=== PATIENT | male | born 1955 | race Caucasian/White ===

== ENCOUNTER 2016-05-27 13:16 | Emergency (ER) | payer MEDICARE ==
[2016-05-27] MEDS ORDERED: DUONEB INH ONE ×2 (15:04)
[2016-05-27] MEDS ORDERED: KETOROLAC 30 MG/ML VIAL ONE (15:12)
[2016-05-27] MEDS ORDERED: CEFTRIAXONE 1 GM VIAL ONE (15:12)
[2016-05-27] MEDS ORDERED: SODIUM CHLORIDE 0.9% 1,000 ML ONE (15:12)
[2016-05-27] MEDS ORDERED: SODIUM CHLORIDE 0.9% 100 ML IV ONE (15:12)
== END 2016-05-27 17:13 | disposition home or self-care (01) ==
LOC: ER 13:16
DX: J11.1 Influenza due to unidentified influenza virus with other respiratory manifestations (principal); J15.9 Unspecified bacterial pneumonia
CPT/HCPCS: 71020; 87804; 94640; 96361; 96365; 96375; 99284; J0696; J1885